=== PATIENT | male | born 2000 | race Caucasian/White ===

== ENCOUNTER 2023-10-24 16:39 | Outpatient (REF) | payer MEDICAID, SELFPAY ==
[2023-10-26 15:16] LABS: Chlamydia Result Negative (Negative); GC Result Negative (Negative)
== END 2023-10-24 16:40 | disposition home or self-care (01) ==
LOC: LBN 16:39
PROVIDERS: PCP Nurse Practitioner Family; Referring Provider Nurse Practitioner Family; Visit Provider Nurse Practitioner Family
DX: Z11.3 Encounter for screening for infections with a predominantly sexual mode of transmission (principal)
CPT/HCPCS: 87491; 87591